=== PATIENT | male | born 1940 | race Caucasian/White ===

== ENCOUNTER 2017-05-08 13:20 | Outpatient (CLI) | payer OTHER, MEDICARE ==
[~2017-05-08 13:20] MED LIST: ALEVE220 MG PO; BUSPIRONE HCL10 MG PO; CARBIDOPA/LEVOD1 TA2 PO; CITALOPRAM HYDR10 MG PO; CLOPIDOGREL75 MG PO; FISH OIL1000 M1 PO; HYDROCHLOROTHIA25 MG PO; LEVOTHYROXINE50 MCG PO; MULTIVITAMIN1 TAB PO; PRAVASTATIN SOD20 MG PO; VITAMIN D-31000 UNIT PO
--- NOTE | 2017-05-08 16:38 | DIAGNOSTIC IMAGING REPORT ---
PROCEDURE: XR CHEST 2 VIEW INDICATION: FATIGUE,HYPOTHYROIDISM,PARKINSON'S,DEPRESSION TECHNIQUE: PA and lateral views. COMPARISON: None. FINDINGS: Lungs are clear. Heart size is normal. The left hemidiaphragm is elevated. IMPRESSION: 1. No acute infiltrates. Elevated left hemidiaphragm.
== END 2017-05-08 23:00 | disposition home or self-care (01) ==
LOC: XR SRH 13:20
DX: R53.83 Other fatigue (principal); E03.9 Hypothyroidism, unspecified; G20 Parkinson's disease; F32.9 Major depressive disorder, single episode, unspecified
CPT/HCPCS: 90074; 90100; 91320; 93140; 95059